=== PATIENT | female | born 1995 | race Caucasian/White ===

== ENCOUNTER 2019-12-31 18:45 | Emergency (ER) | payer SELFPAY ==
[~2019-12-31] VITALS: Ht 162.6 cm; Wt 78.9 kg
== END 2019-12-31 19:21 | disposition home or self-care (01) ==
LOC: ED 18:45
DX: S61.213A Laceration without foreign body of left middle finger without damage to nail, initial encounter (principal); W26.0XXA Contact with knife, initial encounter

== ENCOUNTER 2020-06-13 17:38 | Emergency (ER) | payer MEDICARE ==
[~2020-06-13] VITALS: Ht 162.6 cm; Wt 102.1 kg
[2020-06-13] MEDS ORDERED: CELEXA20 MG PO (18:07)
== END 2020-06-13 19:13 | disposition home or self-care (01) ==
LOC: ED 17:38
DX: S61.213A Laceration without foreign body of left middle finger without damage to nail, initial encounter (principal); W26.8XXA Contact with other sharp object(s), not elsewhere classified, initial encounter; Z79.899 Other long term (current) drug therapy
CPT/HCPCS: 73140; 84703; 99283-25

== ENCOUNTER 2023-01-13 07:10 | Inpatient (IN) | payer BC ==
[~2023-01-13] VITALS: Ht 165.1 cm; Wt 151.0 kg
--- OUTSIDE RECORDS SUMMARY | ~2023-01-13 | XMS | Continuity of Care Document ---
Demographics + + + | Address | [address] | | | [place] [address] | + + + | Preferred Language | Unknown | + + + | Marital Status | Never | + + + | Rastafari Affiliation | Unknown | + + + | Race | White | + + + | Ethnic Group | Unknown | + + + Author + + + | Author | [facility] | + + + | Organization | [facility] | + + + | Address | [address] | | | [place] [address] | + + + | Phone | | + + + Care Team Providers + + + + | Care Pressure Welder Name | Role | Phone | + + + + Unavailable | Unavailable | + + + + Allergies and Intolerances + + + + + | date | description | facility | type | + + + + + | (no date) | No Known Allergies | [facility] | (unknown) | | | | | | + + + + + Encounters No information. Functional Status No information. Immunizations No information. Medications No information. Problems + + + + | date | description | facility | + + + + | 2022-06-17 09:51 | ENCNTR FOR SUPRVSN OF | [facility] | | | NORMAL FIRST PREG, FIRST | | | | TRIMESTER | | + + + + | 2022-06-17 09:51 | LESS THAN 8 WEEKS | [facility] | | | GESTATION OF | | + + + + | 2022-06-17 09:51 | 8 WEEKS GESTATION OF | [facility] | | | | | + + + + | 2022-09-09 09:56 | PREG CARE FOR PATIENT W | [facility] | | | RECUR PREG LOSS, SECOND | | | | TRIMESTER | | + + + + | 2022-09-09 09:56 | OTH VIRAL DISEASES | [facility] | | | COMPLICATING PREGNANC | | + + + + | 2022-09-09 09:56 | OBESITY COMPLICATING | [facility] | | | , SECOND T | | + + + + | 2022-09-09 09:56 | COVID-19 | [facility] | + + + + | 2022-09-16 10:27 | PRETRM OSVALDO ROM, UNSP TIME | [facility] | | | BETW RUPT AND ONSET LABR, | | | | 2ND TRI | | + + + + | 2022-09-16 10:27 | 22 WEEKS GESTATION OF | [facility] | | | | | + + + + | 2022-10-28 16:12 | SUPERVISION OF HIGH RISK | [facility] | | | , UNSP | | + + + + | 2022-10-28 16:12 | OTH VIRAL DISEASES | [facility] | | | COMPLICATING , | | | | SECOND TRIMESTER | | + + + + | 2022-10-28 16:12 | OBESITY COMPLICATING | [facility] | | | , SECOND T | | + + + + | 2022-10-28 16:12 | COVID-19 | [facility] | + + + + | 2022-11-30 15:46 | OBESITY, UNSPECIFIED | [facility] | + + + + | 2022-11-30 15:46 | SUPERVISION OF HIGH RISK | [facility] | | | , UNSP | | + + + + | 2022-11-30 15:46 | SUPERVISION OF HIGH RISK | [facility] | | | , UNSP, THIRD TR | | + + + + | 2022-11-30 15:46 | OTH VIRAL DISEASES | [facility] | | | COMPLICATING , | | | | SECOND TRIMESTER | | + + + + | 2022-11-30 15:46 | OTHER VIRAL DISEASES | [facility] | | | COMPLICATING , | | | | THIRD | | + + + + | 2022-11-30 15:46 | OBESITY COMPLICATING | [facility] | | | , SECOND T | | + + + + | 2022-11-30 15:46 | OBESITY COMPLICATING | [facility] | | | , THIRD TRIMESTER | | + + + + | 2022-11-30 15:46 | COVID-19 | [facility] | + + + + | 2022-11-30 15:46 | 34 WEEKS GESTATION OF | [facility] | | | | | + + + + | 2022-12-23 10:04 | ENCNTR FOR SUPRVSN OF | [facility] | | | NORMAL PREG, UNSP, THIRD | | | | TRIMESTER | | + + + + | 2022-12-23 10:04 | 36 WEEKS GESTATION OF | [facility] | | | | | + + + + | 2022-12-26 10:53 | DECREASED MOVEMENTS, | [facility] | | | THIRD TRIMESTER, UNSP | | + + + + | 2022-12-26 10:53 | 36 WEEKS GESTATION OF | [facility] | | | | | + + + + | 2023-01-02 06:48 | ENCNTR FOR SUPRVSN OF | [facility] | | | NORMAL PREG, UNSP, THIRD | | | | TRIMESTER | | + + + + | 2023-01-02 06:48 | 37 WEEKS GESTATION OF | [facility] | | | | | + + + + | 2023-01-04 13:43 | OBESITY, UNSPECIFIED | [facility] | + + + + | 2023-01-04 13:43 | SUPERVISION OF HIGH RISK | [facility] | | | , UNSP | | + + + + | 2023-01-04 13:43 | OTH VIRAL DISEASES | [facility] | | | COMPLICATING PREGNANC | | + + + + | 2023-01-04 13:43 | OBESITY COMPLICATING | [facility] | | | , SECOND T | | + + + + | 2023-01-04 13:43 | OBESITY COMPLICATING | [facility] | | | , SECOND TRIMESTER | | | | | | + + + + | 2023-01-04 13:43 | COVID-19 | [facility] | + + + + | 2023-01-04 13:43 | 37 WEEKS GESTATION OF | [facility] | | | | | + + + + | 2023-01-04 14:00 | SUPERVISION OF HIGH RISK | [facility] | | | , UNSP | | + + + + | 2023-01-04 14:00 | OTH VIRAL DISEASES | [facility] | | | COMPLICATING PREGNANC | | + + + + | 2023-01-04 14:00 | OBESITY COMPLICATING | [facility] | | | , SECOND T | | + + + + | 2023-01-04 14:00 | COVID-19 | [facility] | + + + + | 2023-01-09 16:21 | ENCOUNTER FOR | [facility] | | | SCREENING FOR CONGENITAL | | | | CARDIAC ABNLT | | + + + + | 2023-01-09 16:21 | 38 WEEKS GESTATION OF | [facility] | | | | | + + + + | 2023-01-17 07:30 | MATERNAL CARE FOR EXCESS | [facility] | | | GROWTH, U | | + + + + Procedures No information. Results/Labs No information. Social History No information. Vital Signs No information."
[~2023-01-13 07:10] MED LIST: CELEXA20 MG PO
[2023-01-17 06:32] VITALS: BP 129/80
[2023-01-17 09:43] VITALS: BP 122/56
--- NOTE | 2023-01-17 09:52 | NUR ---
[facility] SLEEPY WITH NO C/O'S. AWAKENS DURING FUNDAL MASSAGE, THEN FALLS BACK TO SLEEP. FBC RN AT BEDSIDE. FATHER HOLDING BABY. 0930 PT ITCHING AT FACE. FBC RN GAVE PT WET WIPE TO USE. 0945 REPORT GIVEN TO RN. BED PLUGGED IN.
--- NOTE | 2023-01-17 16:24 | PR ---
[facility] [address] [place], [place] [address] Signed PP Progress Notes Datetime Report Generated by CPJoe: 01/17/2023 16:24 SUBJECTIVE: [id number] Pain: Within Normal Limits Nausea/Vomiting: Denies Flatus: No Bowel Movement: No Vital Signs: [id number] Vital Signs: Reviewed; Within Normal Limits Extremities: Normal Incision: Normal Exam Comments: Abdomen soft. Appropriately TTP. Dressing in place IMPRESSION/PLAN/PROCEDURES: [id number] Impression: Normal Progression Plan: Continue Present Management Procedures: None Progress Notes: S: In room to assess drainage and bleeding through pressure dressing. Patient reports no concerns or complaints. She is lying comfortably in bed, tired from and anesthesia. O: AFVSS Abdomen: Soft, appropriately TTP. Dressing in place with serosanguinous discharge. Incision with joanna in place. No gross bleeding noted from incision. However minimal amount of serosanguinous discharge noted near the left pole of the incision. Incision without erythema. A/P: Patient well. Serosanguinous discharge most likely from third spacing of fluids within the tissues as noted during time of surgery. New dressing replaced. Abdominal binder placed to help keep dressing in place and for patient comfort. Of note, urine output has been approximately 40-50 cc/hr. Will continue to monitor. If output drops below 30 cc/hr, will consider giving a small dose of lasix to help with diuresis and fluid third spacing. Signing Physician: Colton Mohr MD Copies: ~ *Electronically Signed* 01/17/23 9106 COLTON MOHR MD PATIENT NAME: EVELYN ACUÑA PROGRESS NOTE DATE OF : 96 PHYSICIAN: COLTON MOHR MD RPT #: [id number] REPORT IS CONFIDENTIAL AND NOT TO BE RELEASED WITHOUT AUTHORIZATION
--- NOTE | 2023-01-18 06:39 | PR ---
[facility] [address] [place], [place] [address] Signed PP Progress Notes Datetime Report Generated by CPN: 01/18/2023 06:39 SUBJECTIVE: [id number] Pain: Within Normal Limits Nausea/Vomiting: Denies Flatus: Yes Bowel Movement: No Vital Signs: [id number] Vital Signs: Reviewed; Within Normal Limits Abdomen/Uterus: Normal Lochia: Normal Extremities: Normal Incision: Normal Progress: Normal Exam Comments: Abdomen soft. Appropriately TTP. Dressing in place IMPRESSION/PLAN/PROCEDURES: [id number] Impression: Normal Progression Plan: Continue Present Management Procedures: None Progress Notes: S: Patient doing well. Resting comfortably in bed. No concerns or complaints. Denies CP, SOB, F/C, N/V, RUQ pain, changes in vision. She does report headache. Minimal vaginal discharge. Tolerating regular diet, voiding per miller, pain controlled, ambulating, positive flatus. O: AFVSS Abd:Soft. Non distended. Fundus firm. Below umbilicus. Dressing in place with not bleeding noted through dressing. Musc: ROBLES. Moderate edema. A/P: Patient well. POD #1 s/p elective section. Continue and postop care. Currently on Lovenox 40 mg daily for DVT prophylaxis. Will continue. Disposition: In house. Possible D/C home tomorrow. Signing Physician: Mike Hernandez MD Copies: ~ *Electronically Signed* 01/18/23 0639 MIKE HERNANDEZ MD PATIENT NAME: EVELYN ACUÑA BHARATH PROGRESS NOTE DATE OF : 96 PHYSICIAN: MIKE HERNANDEZ MD RPT #: [id number] REPORT IS CONFIDENTIAL AND NOT TO BE RELEASED WITHOUT AUTHORIZATION
--- NOTE | 2023-01-18 13:03 | NUR ---
PT IN BED WITH LIGHTS OFF. APPEARED TO BE SLEEPING. DAD IN CHAIR WITH BABY. DID NOT DISTURB. OFFERED PRAYER FOR HEALING FROM [facility].
--- NOTE | 2023-01-19 08:53 | PR ---
[facility] [address] [place], [place] [address] Signed PP Progress Notes Datetime Report Generated by CPN: 01/19/2023 08:53 SUBJECTIVE: [id number] Pain: Within Normal Limits Nausea/Vomiting: Denies Flatus: Yes Bowel Movement: No Vital Signs: [id number] Vital Signs: Reviewed; Within Normal Limits Cardiovascular: Normal Respiratory: Normal Abdomen/Uterus: Normal Lochia: Normal Extremities: Normal Incision: Normal Progress: Normal Exam Comments: NAD, resting in bed No dyspnea or retractions RRR Abd SNTND, FFBU, incision c/d/i. Dressing removed, replaced with maxi. Ext: 2+ BLLE edema, neg Guilherme's BL, SCDs in place IMPRESSION/PLAN/PROCEDURES: [id number] Impression: Normal Progression Other Impression: spinal headache Plan: Continue Present Management Procedures: None Progress Notes: POD#2 s/p PLTCS (elective, maternal request) -progressing well : ambulating, voiding, tolerating regular diet, +flatus, -BM yet. Lochia light, planning to shower this morning. Formula feeding baby. Incisonal pain well-controlled, using binder for additional support. Reports spinal headache now moderately controlled with oxycodone 10mg q4h; will plan to continue Anticipate DC to home tomorrow Signing Physician: Oumou Jenkins DO *Electronically Signed* 01/19/23 0853 OUMOU JENKINS DO PATIENT NAME: EVELYN ACUÑA PROGRESS NOTE DATE OF : 96 PHYSICIAN: OUMOU JENKINS #: [id number] REPORT IS CONFIDENTIAL AND NOT TO BE RELEASED WITHOUT AUTHORIZATION
--- NOTE | 2023-01-20 10:14 | PR ---
[facility] [address] [facility] [place], [place] [address] Signed PP Progress Notes Datetime Report Generated by CPN: 01/20/2023 10:14 SUBJECTIVE: [id number] Pain: Within Normal Limits Nausea/Vomiting: Denies Flatus: Yes Bowel Movement: No Vital Signs: [id number] Vital Signs: Reviewed; Within Normal Limits Cardiovascular: Normal Respiratory: Normal Abdomen/Uterus: Normal Lochia: Normal Extremities: Normal Incision: Normal Progress: Not Applicable Exam Comments: NAD, sitting up in bed, FOB and baby at bedside RRR No dyspnea/ retractions Abd SNTND Ext: 2+ BLLE, neg Guilherme's BL IMPRESSION/PLAN/PROCEDURES: [id number] Impression: Normal Progression Other Impression: spinal headache Plan: Continue Present Management; Discharge Procedures: None Progress Notes: POD#3 s/p PLTCS - maternal request -progressing well postop/ -plan staple removal in office Monday or Monday Signing Physician: Oumou Jenkins DO Copies: ~ *Electronically Signed* 01/20/23 1014 OUMOU JENKINS DO PATIENT NAME: EVELYN ACUÑA PROGRESS NOTE DATE OF : [birth year] PHYSICIAN: OUMOU JENKINS DO RPT #: [id number] REPORT IS CONFIDENTIAL AND NOT TO BE RELEASED WITHOUT AUTHORIZATION
--- NOTE | 2023-01-20 11:06 | NUR ---
MOM IN BED WITH EYES CLOSED. DID NOT ROUSE TO MY KNOCK. DAD WAIVED ME IN. DAD ON COUCH. BABY RESTING QUIETLY IN [place]ASS[place]ET. DAD EXPRESSED CONCERN REGARDING MOM'S HEALING AND SOME NERVOUSNESS ABOUT DAYS TO COME. PRAYED.
--- NOTE | 2023-01-23 08:22 | OR ---
[facility] [address] [place], [place] [address] Signed DATE OF OPERATION: 01/17/2023 SURGEON: Oumou Jenkins DO ENVIRONMENTAL MAINTENANCE WORKER: David Alberts MD. PROCEDURE: Primary low-transverse . PREOPERATIVE DIAGNOSES: Elective delivery, maternal request, 39 weeks gestation, morbid obesity, anxiety and depression. History of THC use. POSTOPERATIVE DIAGNOSES: Term , delivered; morbid obesity, anxiety and depression, history of THC use. ANESTHESIA: Spinal. COMPLICATIONS: None. BLOOD LOSS: 650 mL. FINDINGS: Viable term female in the left occiput anterior position with Apgars 8 and 9 at 1 and 5 minutes respectively, weighing 8 pounds 11 ounces. Normal-appearing bilateral tubes and ovaries. INDICATION: The patient is a 27-year-old G1, P0, who reports strong preference for primary delivery. Risks, benefits, alternatives were discussed extensively at length including risk of scarring complicating any future surgeries, need for repeat if any future pregnancies, risk of abnormal placentation with any future pregnancies, risk of bleeding and infection, pain, prolonged healing time, particularly with regard to BMI, Electronically Signed By: OUMOU JENKINS DO 01/23/23 0822 PATIENT NAME: EVELYN ACUÑA OPERATIVE REPORT DATE OF : [birth year] REPORT #: [id number] PHYSICIAN: OUMOU JENKINS DO PCP: NO PRIMARY CARE PHYSICIAN REPORT IS CONFIDENTIAL AND NOT TO BE RELEASED WITHOUT AUTHORIZATION [facility] [address] [place], [place] [address] Signed injury to surrounding structures. All questions were answered to the best of my ability to Ms. Acuña and her 's apparent satisfaction and they elected to proceed. PROCEDURE IN DETAIL: The patient was given 3 g Ancef. She was taken back to the operating room where spinal anesthesia was placed. She was then positioned in dorsal lithotomy with a leftward tilt and prepped and draped in normal sterile fashion. Adequate anesthesia was confirmed and horizontal abdominal incision above typical Pfannenstiel incision as previously discussed to optimize postoperative healing was made with a scalpel and carried down to underlying layer of fascia with Bovie cautery. Perforating vessels were cauterized as they were encountered. Fascia was then incised in the midline and incision was extended laterally with Varela scissors. Inferior margin of fascia was grasped and elevated with Jhonathan clamps. Underlying rectus muscles dissected off bluntly and sharply with Varela scissors. Inferior margin of fascia was then released. Superior margin was grasped and elevated with Jhonathan clamps and underlying rectus muscles dissected off bluntly and sharply with Varela scissors. Peritoneum was entered bluntly and incision was extended with digital traction. José Miguel retractor was placed without difficulty. head was easily palpable and low in the pelvis. Low-transverse uterine incision was made with a scalpel and uterus was entered bluntly, digitally. Amniotic fluid was noted to be lightly stained with meconium. The baby's head was easily elevated to the level of the hysterotomy and delivered through. Fundal pressure was applied by the photography assistant, allowing for delivery of anterior posterior shoulder without difficulty. Baby was then grasped in the axilla bilaterally to gently deliver the rest of the body. The baby gave a strong spontaneous cry. Cord was doubly clamped and cut and she was handed to waiting nursery team. Cord blood was collected for type and Summer and placenta was delivered manually, noted to be intact with a centrally inserted three-vessel cord. Uterus was cleared of clots and debris. Hysterotomy was closed in a double-layer closure first with 0 Monocryl in a running locked fashion, with 0 Monocryl in an imbricating manner following closure. Mild persistent oozing was noted at the right apex. Qeoirw-xv-tvwyd stitch was placed with hemostasis achieved. Mabel powder was applied over the hysterotomy after suction irrigating the pelvis with warm sterile saline. The bilateral tubes and ovaries were visualized, confirming normal appearance was noted above. José Miguel retractor was removed and Fish retractor was placed in the peritoneum. Peritoneum was closed in a running fashion with 2-0 Vicryl, with removal of fish just prior to completion of closure. Rectus muscle was reapproximated at midline with 0 Vicryl in a simple interrupted fashion. Perforating vessels were cauterized as they were noted. Rectus was suction irrigated with warm sterile saline and hemostasis was noted. Fascia was Electronically Signed By: OUMOU JENKINS DO 01/23/23 0822 PATIENT NAME: EVELYN ACUÑA OPERATIVE REPORT DATE OF : [birth year] REPORT #: [id number] PHYSICIAN: OUMOU JENKINS DO PCP: NO PRIMARY CARE PHYSICIAN REPORT IS CONFIDENTIAL AND NOT TO BE RELEASED WITHOUT AUTHORIZATION [address] [address] Signed closed with 0 Vicryl working first from right apex to midline, then left apex to midline in a running fashion meeting in the middle. Subcutaneous layer was then suction irrigated with warm sterile saline and noted to be hemostatic. Natividad's fascia was closed with 3-0 Vicryl in a running fashion. Additional depth of subcutaneous layer exceeded 3 cm, so a second layer of reapproximation was completed with 3-0 Vicryl in a running fashion and the skin was closed with joanna. Uterus was Crede'd and noted to be free of clots and firm. Sponge and instrument counts were confirmed to be correct. The patient was taken to recovery in stable and satisfactory condition. Oumou Jenkins DO EMZ/MODL /[id number] Copies: ~ Electronically Signed By: OUMOU JENKINS DO 01/23/23 0822 PATIENT NAME: EVELYN ACUÑA OPERATIVE REPORT DATE OF : [birth year] REPORT #: [id number] PHYSICIAN: OUMOU JENKINS DO PCP: NO PRIMARY CARE PHYSICIAN REPORT IS CONFIDENTIAL AND NOT TO BE RELEASED WITHOUT AUTHORIZATION
== END 2023-01-20 11:30 | disposition home or self-care (01) | DRG 788 ==
LOC: FBC 01-17 05:03
PROVIDERS: ADMIT Obstetrics & Gynecology; ATTEND Obstetrics & Gynecology
PROC: 10D00Z1 Extraction of Products of Conception, Low, Open Approach (ICD-10-PCS; principal; 2023-01-17 07:30)
DX: O99.344 Other mental disorders complicating childbirth (principal); O99.214 Obesity complicating childbirth; E66.01 Morbid (severe) obesity due to excess calories; O74.5 Spinal and epidural anesthesia-induced headache during labor and delivery; Z37.0 Single live birth; F41.9 Anxiety disorder, unspecified; F32.A Depression, unspecified; Z3A.39 39 weeks gestation of pregnancy; Z67.10 Type A blood, Rh positive; Z90.49 Acquired absence of other specified parts of digestive tract; Z90.89 Acquired absence of other organs; Z79.899 Other long term (current) drug therapy
CPT/HCPCS: 01961; 36415; 85027; 86850; 86900; 86901; A9270; J0690; J1100; J1650; J1790; J1885; J2250; J2274; J2300; J2405; J2590; J2765; J2795; J3490; J7121

== ENCOUNTER 2024-09-08 18:38 | Emergency (ER) | payer BC ==
[~2024-09-08] VITALS: Ht 152.4 cm; Wt 133.4 kg
[2024-09-08] MEDS ORDERED: VITAFOL-OB+DHA1 EACH (18:52)
[2024-09-08] MEDS ORDERED: VENTOLIN HFA18 GM (18:53)
[2024-09-08 19:28] LABS: CORONAVIRUS COVID-19 AG NEGATIVE (NEGATIVE); INFLUENZA A AG NEGATIVE (NEGATIVE); INFLUENZA B AG NEGATIVE (NEGATIVE)
[2024-09-08] MEDS ORDERED: ALBUTEROL SULFATE 8 GM HOME.PACK INH ONE (19:45)
[2024-09-08] MEDS ORDERED: INHALER, ASSIST DEVICES 1 EACH SPACER MISC ONE (19:45)
[2024-09-08] MEDS ORDERED: AZITHROMYCIN 250 MG HOME.PACK PO ONE (19:45)
[2024-09-08] MEDS ORDERED: methylPREDNISolone 4 MG HOME.PACK PO ONE (19:45)
[2024-09-08 19:53] VITALS: BP 108/71
== END 2024-09-08 19:59 | disposition home or self-care (01) ==
LOC: ED 18:38
PROVIDERS: Emergency Medicine
DX: O99.512 Diseases of the respiratory system complicating pregnancy, second trimester (principal); J40 Bronchitis, not specified as acute or chronic; O99.332 Smoking (tobacco) complicating pregnancy, second trimester; F17.200 Nicotine dependence, unspecified, uncomplicated; Z3A.20 20 weeks gestation of pregnancy; Z79.899 Other long term (current) drug therapy
CPT/HCPCS: 36415; 94640; 94664; 99285

== ENCOUNTER 2025-01-09 14:42 | Inpatient (IN) | payer BC ==
[~2025-01-09] VITALS: Ht 165.1 cm; Wt 137.0 kg
[~2025-01-09 14:42] MED LIST changes: +CEPHALEXIN500 M1 PO; +FEROSUL325 MG PO; +MAGNESIUM250 MG PO; +OMEPRAZOLE20 M1 PO; +VENTOLIN HFA18 GM; +VITAFOL-OB+DHA1 EACH
[2025-01-13] MEDS ORDERED: LACTATED RINGER'S 1,000 ML IV PRN (05:30)
[2025-01-13] MEDS ORDERED: SOD+POT BICARB/CITRIC ACID 2 EA TABLET.EFF PO ONE (05:30)
[2025-01-13 05:47] VITALS: BP 135/73
[2025-01-13 06:06] LABS: BASOPHILS 0.1 % (0.1-1.2); EOSINOPHILS 0.4 % (0.7-5.8); LYMPHOCYTES 23.2 % (19.3-51.7); MCH 27.5 PG (25.6-32.2); MCHC 32.3 g/dL (32.2-35.5); MCV 85.0 fL (79.4-94.8); MONOCYTES 5.1 % (4.7-12.5); NEUTROPHILS 70.8 % (34.0-71.1); RBC 4.26 M/uL (3.93-5.22)
[2025-01-13] MEDS ORDERED: OXYTOCIN 10 UNITS/ML VIAL ONE (06:21)
[2025-01-13] MEDS ORDERED: LIDOCAINE HCL 2% 5 ML SDV ONE (06:21)
[2025-01-13] MEDS ORDERED: KETOROLAC TROMETHAMINE 30 MG/ML VIAL ONE (06:21)
[2025-01-13] MEDS ORDERED: PHENYLEPHRINE HCL 10 MG/ML VIAL ONE (06:21)
[2025-01-13] MEDS ORDERED: DEXAMETHASONE SOD PHOS 4 MG/ML VIAL ONE ×2 (06:21→10:05)
[2025-01-13] MEDS ORDERED: BUPIVACAINE 0.75% IN DEXTROSE 2 ML AMP ONE (06:21)
[2025-01-13] MEDS ORDERED: SOD+POT BICARB/CITRIC ACID 2 EA TABLET.EFF ONE (06:22)
[2025-01-13] MEDS ORDERED: SODIUM CHLORIDE 0.9% 20 ML IV ONE (06:23)
[2025-01-13] MEDS ORDERED: LACTATED RINGER'S 1,000 ML IV ONE ×2 (06:25→10:23)
[2025-01-13] MEDS ORDERED: fentaNYL citrate 100 MCG/2 ML VIAL ONE (06:27)
[2025-01-13 06:37] LABS: AMPHETAMINES, URINE NEGATIVE (NEGATIVE); BARBITURATES, URINE NEGATIVE (NEGATIVE); BENZODIAZEPINE, URINE NEGATIVE (NEGATIVE); CANNABINOID, URINE NEGATIVE (NEGATIVE); ECSTASY, URINE NEGATIVE (NEGATIVE); FENTANYL, URINE NEGATIVE (NEGATIVE); METHADONE, URINE NEGATIVE (NEGATIVE); OPIATES, URINE NEGATIVE (NEGATIVE); OXYCODONE, URINE NEGATIVE (NEGATIVE); PHENCYCLIDINE, URINE NEGATIVE (NEGATIVE)
[2025-01-13 06:39] LABS: ABO A; ANTIBODY SCREEN NEGATIVE; RH POSITIVE
[2025-01-13] MEDS ORDERED: CEFAZOLIN SODIUM 3 GM/30 ML SYR IV SCH (07:00)
[2025-01-13 07:06] LABS: COCAINE, URINE NEGATIVE (NEGATIVE)
[2025-01-13] MEDS ORDERED: SODIUM CHLORIDE 0.9% 60 ML IV ONE (10:04)
[2025-01-13] MEDS ORDERED: OXYCODONE/APAP 5/325 TAB PO PRN (10:45)
[2025-01-13] MEDS ORDERED: METOCLOPRAMIDE HCL 10 MG/2 ML SDV IV PRN (10:45)
[2025-01-13] MEDS ORDERED: HYDROCODONE/ACETA 5/325 TAB PO PRN (10:45)
[2025-01-13] MEDS ORDERED: PROMETHAZINE HCL 25 MG SUPP PR PRN (10:45)
[2025-01-13] MEDS ORDERED: PROCHLORPERAZINE EDISYLATE 10 MG/2 ML VIAL IV PRN (10:45)
[2025-01-13] MEDS ORDERED: OXYTOCIN/0.9 % SODIUM CHLORIDE 500 ML IV SCH (10:45)
[2025-01-13] MEDS ORDERED: PROMETHAZINE HCL 25 MG TAB PO PRN (10:45)
[2025-01-13] MEDS ORDERED: OXYCODONE HCL 5 MG TAB PO PRN (10:45)
[2025-01-13] MEDS ORDERED: LACTATED RINGER'S 1,000 ML IV SCH (10:47)
[2025-01-13] MEDS ORDERED: SIMETHICONE 80 MG CHEW PO SCH (11:00)
[2025-01-13 11:16] VITALS: BP 114/69
--- NOTE | 2025-01-13 11:19 | NUR ---
01/13/25 1119 AlbertLita BABY TO MOM. FATHER AT BEDSIDE. FBC RN AT BEDSIDE. BEDSIDE REPORT GIVEN.
[2025-01-13] MEDS ORDERED: fentaNYL citrate 50 MCG/ML SDV IV PRN (11:30)
[2025-01-13] MEDS ORDERED: MORPHINE SULFATE 4 MG/ML VIAL IV PRN (11:30)
[2025-01-13] MEDS ORDERED: NALOXONE HCL 0.4 MG SYR IV PRN ×2 (11:30)
[2025-01-13] MEDS ORDERED: HYDROmorphone HCL 1 MG/ML SYR IV PRN (11:30)
[2025-01-13] MEDS ORDERED: IBLOOD GLUCOSE TEST STRIP 1 EA TEST VI PRN (11:30)
[2025-01-13] MEDS ORDERED: KETOROLAC TROMETHAMINE 30 MG/ML VIAL IV SCH (14:00)
[2025-01-13] MEDS ORDERED: ENOXAPARIN SODIUM 40 MG/0.4 ML SYR SUB-Q SCH (18:00)
[2025-01-13] MEDS ORDERED: SENNOSIDES/DOCUSATE 1 EA TAB PO SCH (21:00)
[2025-01-14] MEDS ORDERED: IBUPROFEN 600 MG TAB PO SCH ×2 (02:00→14:00)
[2025-01-14] MEDS ORDERED: LACTATED RINGER'S 1,000 ML IV SCH (05:00)
[2025-01-14 05:48] LABS: MCH 27.9 PG (25.6-32.2); MCHC 32.1 g/dL (32.2-35.5); MCV 86.9 fL (79.4-94.8); RBC 4.05 M/uL (3.93-5.22)
--- NOTE | 2025-01-14 17:49 | PR ---
[facility] [address] [facility] [place], [place] [address] Signed PP Progress Notes Datetime Report Generated by CPN: 01/14/2025 17:49 SUBJECTIVE: [id number] Pain: Within Normal Limits Nausea/Vomiting: Denies Flatus: Yes Bowel Movement: No Vital Signs: [id number] Vital Signs: Reviewed; Within Normal Limits Cardiovascular: Normal Respiratory: Normal Abdomen/Uterus: Normal Lochia: Normal Vulva/Perineum: Not Done Breasts: Not Done CVA Tenderness: Normal Extremities: Normal Incision: Normal Progress: Normal Exam Comments: Fundus firm U-2 nontender. Incision clean / dry intact IMPRESSION/PLAN/PROCEDURES: [id number] Impression: Normal Progression Plan: Continue Present Management Progress Notes: Pt seen and examined. Doing well. Ambulating, voiding, and tolerating full diet. C/O some residual numbness of her LEFT foot and ankle. Anesthesia was advised and was not concerned. No fever / chill or other concerns. Anticipate d/c home tomorrow. Signing Physician: Whit De DO Copies: ~ *Electronically Signed* 01/14/25 2064 WHIT DE (CHRISTINA) DO PATIENT NAME: EVELYN ACUÑA PROGRESS NOTE DATE OF : 96 PHYSICIAN: WHIT DE) DO RPT #: [id number] REPORT IS CONFIDENTIAL AND NOT TO BE RELEASED WITHOUT AUTHORIZATION
[2025-01-15] MEDS ORDERED: IBUPROFEN 600 MG TAB PO SCH (02:00)
[2025-01-15] MEDS ORDERED: CALCIUM CARBONATE 500 MG CHEW PO PRN (04:45)
--- NOTE | 2025-01-15 12:42 | PR ---
[facility] [address] [place] [place], [place] [address] Signed PP Progress Notes Datetime Report Generated by CPN: 01/15/2025 12:42 SUBJECTIVE: [id number] Pain: Within Normal Limits Pain Comments: LEFT foot numbness / weakness Nausea/Vomiting: Denies Flatus: Yes Bowel Movement: No Vital Signs: [id number] Vital Signs: Reviewed; Within Normal Limits EXAM: Ongoing Cardiovascular: Normal Respiratory: Normal Abdomen/Uterus: Normal Lochia: Normal Vulva/Perineum: Not Done Breasts: Not Done CVA Tenderness: Normal Extremities: Abnormal Incision: Normal Progress: Normal Exam Comments: Normal RIGHT foot / senstation / strength. Parasthesia of the LEFT foot starting just above the ankle, lower on the leg than previous. Heat/cold sensation intact. Strength abnormal on LEFT IMPRESSION/PLAN/PROCEDURES: [id number] Impression: Normal Progression Other Impression: LEFT foot weakness/ parasthesia Plan: Continue Present Management Progress Notes: Pt seen and examined. Doing well. Ambulating w/ assistance, voiding, and toerating full diet. Pain and lochia minimal. . C/O somewhat improving LEFT foot numbness / weakness. Anesthesia evaluated pt this AM and recommended MRI to r/u spinal hematoma. Consider PT referral if MRI normal. Consider d/c home tomorrow Signing Physician: Whit De DO Copies: ~ *Electronically Signed* 01/15/25 3566 WHIT DE (CHRISTINA) DO PATIENT NAME: EVELYN ACUÑA PROGRESS NOTE DATE OF : [birth year] PHYSICIAN: WHIT DE (JD) DO RPT #: [id number] REPORT IS CONFIDENTIAL AND NOT TO BE RELEASED WITHOUT AUTHORIZATION
--- NOTE | 2025-01-15 12:49 | PATH ---
[facility] [address] [place], [place] [address] Signed SPECIMEN(S): A FALLOPIAN TUBES, BILATERAL SPECIMEN SOURCE: A. FALLOPIAN TUBES, BILATERAL CLINICAL HISTORY: Repeat FINAL PATHOLOGIC DIAGNOSIS: Bilateral fallopian tubes, sterilization: - Both tubes are completely transected and contain the fimbriated ends. DWS:laurie MICROSCOPIC EXAMINATION: Histologic sections of all submitted blocks are examined by light microscopy. These findings, together with the gross examination, support the pathologic diagnosis. GROSS DESCRIPTION: The specimen, labeled and designated "Andrew, bilateral fallopian tubes," is received in formalin and consists of two red-brown edematous fimbriated fallopian tube segments (7.5 cm in length and ranging in diameter from 0.6 to 1.4 cm, and 7.5 cm in length and ranging in diameter from 1.0 to 1.4 cm). One of the segments is arbitrarily inked blue. Both segments are serially sectioned to reveal red-brown soft cut surfaces. Starch Dumper sections including the fimbriae entirely are submitted in cassette (A1-A2). VB (under the direct supervision of a pathologist) The Gross Description was prepared using a voice recognition system. The report was reviewed for accuracy; however, sound-alike word errors, addition and/or deletions may occur. If there is any question about this report, please contact Client Services. PERFORMING LABORATORY: Technical component was performed by [facility], [address] [place] [id number] (CLIA# [id number]). Professional interpretation was performed by [facility], [address] [place] [id number] (CLIA#: [id number]). Diagnostician: Amor Olivares MD Pathologist PATIENT NAME: EVELYN ACUÑA PATHOLOGY DATE OF : [birth year] REPORT #: [id number] PHYSICIAN: [facility] PCP: CHELSIE ACUÑA MD REPORT IS CONFIDENTIAL AND NOT TO BE RELEASED WITHOUT AUTHORIZATION [address] [address] Signed Electronically Signed 01/15/2025 Copies: ~ PATIENT NAME: EVELYN ACUÑA PATHOLOGY DATE OF : [birth year] REPORT #: [id number] PHYSICIAN: [facility] PCP: CHELSIE ACUÑA MD REPORT IS CONFIDENTIAL AND NOT TO BE RELEASED WITHOUT AUTHORIZATION
--- NOTE | 2025-01-16 08:55 | PR ---
[facility] [address] [place], [place] [address] Signed PP Progress Notes Datetime Report Generated by CPN: 01/16/2025 08:55 SUBJECTIVE: [id number] Pain: Within Normal Limits Pain Comments: LEFT foot numbness / weakness Nausea/Vomiting: Denies Flatus: Yes Bowel Movement: No Vital Signs: [id number] Vital Signs: Reviewed; Within Normal Limits EXAM: Ongoing Cardiovascular: Normal Respiratory: Normal Abdomen/Uterus: Normal Lochia: Normal Vulva/Perineum: Not Done Breasts: Not Done CVA Tenderness: Not Done Extremities: Abnormal Incision: Normal Progress: Not Applicable Exam Comments: Right foot and leg with normal strength and sensation. Left foot with decreased sensation from lower calf to toes. Is able to wiggle toes slightly, can not flex toes, can point toes slightly. IMPRESSION/PLAN/PROCEDURES: [id number] Impression: Normal Progression Other Impression: Decreased sesation/mobility left leg Plan: Continue Present Management; Discharge Progress Notes: MRI reviewed with patient. No evidence of hematoma related to spinal. Bulging disk noted. Pt declines steroids. Is still using walker for ambulation. Pain and lochia well controlled. Bottle feeding. Plan on D/C today. Awaiting PT consult. Signing Physician: Whit De DO Copies: ~ *Electronically Signed* 01/16/25 0855 WHIT DE (CHRISTINA) DO PATIENT NAME: EVELYN ACUÑA PROGRESS NOTE DATE OF : [birth year] PHYSICIAN: WHIT DE (JD) DO RPT #: [id number] REPORT IS CONFIDENTIAL AND NOT TO BE RELEASED WITHOUT AUTHORIZATION
== END 2025-01-16 13:55 | disposition home or self-care (01) | DRG 785 ==
LOC: FBC 01-13 05:03
PROVIDERS: ADMIT Obstetrics & Gynecology; ATTEND Obstetrics & Gynecology
PROC: 4A1HXCZ Monitoring of Products of Conception, Cardiac Rate, External Approach (ICD-10-PCS; 2025-01-13)
PROC: 10D00Z1 Extraction of Products of Conception, Low, Open Approach (ICD-10-PCS; principal; 2025-01-13 07:30)
PROC: 0UT70ZZ Resection of Bilateral Fallopian Tubes, Open Approach (ICD-10-PCS; 2025-01-13 07:30)
DX: O34.211 Maternal care for low transverse scar from previous cesarean delivery (principal); Z3A.38 38 weeks gestation of pregnancy; Z37.0 Single live birth; O99.334 Smoking (tobacco) complicating childbirth; F17.290 Nicotine dependence, other tobacco product, uncomplicated; O24.424 Gestational diabetes mellitus in childbirth, insulin controlled; O99.214 Obesity complicating childbirth; E66.01 Morbid (severe) obesity due to excess calories; Z30.2 Encounter for sterilization; R20.0 Anesthesia of skin; O99.893 Other specified diseases and conditions complicating puerperium
CPT/HCPCS: 01961; 36415; 72158; 76942; 80307; 85025; 85027; 86850; 86900; 86901; 97162; 97530; A9270; A9573; J0690; J1100; J1650; J1885; J2003; J2371; J2405; J2590; J3010; J7121